=== PATIENT | female | born 1985 | race Caucasian/White ===

== ENCOUNTER 2018-07-27 17:44 | Observation (INO) | payer OTHER ==
[~2018-07-27] VITALS: Ht 168 cm; Wt 74.8 kg
[2018-07-27 18:54] VITALS: BP 117/77
[2018-07-27] MEDS ORDERED: PREN1TAB80 PO (18:54)
[2018-07-27] MEDS: RINGERS SOLUTION,LACTATED 1,000 ML IV SCH (20:14)
== END 2018-07-27 23:40 | disposition home or self-care (01) ==
LOC: OBSVTOIN 17:44 → 4S 17:44 → INTOOBSV 17:44
PROVIDERS: ADMIT Specialist; ATTEND Specialist
DX: O62.9 Abnormality of forces of labor, unspecified (principal); O48.0 Post-term pregnancy; Z3A.40 40 weeks gestation of pregnancy
CPT/HCPCS: 59025; 76805; 96360

== ENCOUNTER 2018-07-29 14:45 | Observation (INO) | payer OTHER ==
[~2018-07-29 14:45] MED LIST: PREN1TAB80 PO
[2018-07-29 16:07] VITALS: BP 111/68
== END 2018-07-29 16:45 | disposition home or self-care (01) ==
LOC: 4S 14:45
PROVIDERS: ADMIT Obstetrics & Gynecology; ATTEND Obstetrics & Gynecology
DX: O26.893 Other specified pregnancy related conditions, third trimester (principal); R20.0 Anesthesia of skin; O48.0 Post-term pregnancy; Z3A.40 40 weeks gestation of pregnancy
CPT/HCPCS: 59025; G0378

== ENCOUNTER 2018-07-29 17:06 | Emergency (ER) | payer SELFPAY ==
[~2018-07-29] VITALS: Ht 175.3 cm; Wt 74.0 kg
[2018-07-29] MEDS ORDERED: MINERAL OIL/PETROLATUM,WHITE PF 3.5 GM OPHTHALMIC OINTMENT OS ONE (17:30)
[2018-07-29 18:08] VITALS: BP 111/64
== END 2018-07-29 18:31 | disposition home or self-care (01) ==
LOC: EMS 17:06
DX: O26.893 Other specified pregnancy related conditions, third trimester (principal); G51.0 Bell's palsy; Z3A.40 40 weeks gestation of pregnancy
CPT/HCPCS: 99283

== ENCOUNTER 2018-08-01 09:52 | Inpatient (IN) | payer OTHER ==
[~2018-08-01] VITALS: Ht 168 cm; Wt 74.4 kg
[2018-08-01 10:07] VITALS: BP 109/67
[2018-08-01] MEDS ORDERED: RINGERS SOLUTION,LACTATED 1,000 ML IV ONE (11:28)
[2018-08-01] MEDS ORDERED: RINGERS SOLUTION,LACTATED 1,000 ML IV PRN (11:29)
[2018-08-01] MEDS ORDERED: RINGERS SOLUTION,LACTATED 1,000 ML IV SCH (11:29)
[2018-08-01] MEDS ORDERED: OXYTOCIN 30 UNITS/LACT RINGERS 500 ML IV ONE (11:29)
[2018-08-01] MEDS ORDERED: METHYLERGONOVINE MALEATE 0.2 MG/ML VIAL IM PRN (11:30)
[2018-08-01] MEDS ORDERED: METOCLOPRAMIDE HCL 5 MG/ML 2 ML VIAL IVP PRN (11:30)
[2018-08-01] MEDS ORDERED: CITRIC ACID/SODIUM CITRATE 30 ML SOLUTION UDCUP PO PRN (11:30)
[2018-08-01] MEDS ORDERED: FentaNYL CITRATE-PF 100 MCG/2 ML VIAL IVP PRN (11:30)
[2018-08-01] MEDS ORDERED: LIDOCAINE/PF 1% 30 ML VIAL INJ PRN (11:30)
[2018-08-01] MEDS: OXYGEN THERAPY IH SCH ×2 (11:30→20:00)
[2018-08-01] MEDS ORDERED: ROPIVACAINE HCL/PF 0.2% 100 ML ED ONE (12:04)
[2018-08-01] MEDS ORDERED: LIDOCAINE/PF 2% 5 ML VIAL ONE (12:04)
[2018-08-01 12:15] LABS: BASOPHILS % (AUTO) 0.4 % (0.0-2.0); EOSINOPHILS % (AUTO) 0 % (1.0-6.0); HEMATOCRIT 39.2 % (36-46); HEMOGLOBIN 13.6 g/dL (12.0-16.0); LYMPHOCYTES # (AUTO) 1.2 K/uL (1.0-4.8); LYMPHOCYTES % (AUTO) 10.8 % (22.0-44.0); MEAN CORPUSCULAR HEMOGLOBIN 32.2 pg (26.0-34.0); MEAN CORPUSCULAR HGB CONC 34.6 G/dL (31.0-37.0); MEAN CORPUSCULAR VOLUME 93 fL (80-100); MONOCYTES # (AUTO) 0.4 K/uL (0.1-1.0); MONOCYTES % (AUTO) 3.4 % (2.0-9.0); NEUTROPHILS # (AUTO) 9.3 K/uL (1.8-7.7); NEUTROPHILS % (AUTO) 85.4 % (40.0-70.0); PLATELET COUNT (AUTO)-OB 163 K/uL (150-450); RED BLOOD CELL COUNT(AUTO) 4.21 MIL/uL (4.00-5.20); RED CELL DISTRIBUTION WIDTH 13.7 % (11.5-14.5)
[2018-08-01 17:13] LABS: RUBELLA SCREEN (IGG) IMMUNE (IMMUNE)
[2018-08-01] MEDS ORDERED: LANOLIN 7 GM OINTMENT TP PRN (19:15)
[2018-08-01] MEDS ORDERED: IBUPROFEN 600 MG TABLET PO PRN (19:15)
[2018-08-01] MEDS ORDERED: BENZOCAINE 20%/MENTHOL 56 GM SPRAY CANISTER TP PRN (19:15)
[2018-08-01] MEDS ORDERED: GLYCERIN/WITCH HAZEL LEAF 40 PADS JAR TP PRN (19:15)
[2018-08-01] MEDS ORDERED: ACETAMINOPHEN/CODEINE 300-30 MG TABLET PO PRN ×2 (19:15)
[2018-08-01] MEDS ORDERED: ACETAMINOPHEN 1000 MG/ISO-OSM 100 ML IV ONE (21:15)
[2018-08-01] MEDS: SENNA/DOCUSATE SODIUM 187-50 MG TABLET PO SCH (23:20)
[2018-08-02 05:25] LABS: BASOPHILS % (AUTO) 0.2 % (0.0-2.0); EOSINOPHILS % (AUTO) 0 % (1.0-6.0); HEMATOCRIT 32.7 % (36-46); HEMOGLOBIN 11.3 g/dL (12.0-16.0); LYMPHOCYTES # (AUTO) 1.5 K/uL (1.0-4.8); LYMPHOCYTES % (AUTO) 11.5 % (22.0-44.0); MEAN CORPUSCULAR HEMOGLOBIN 32.4 pg (26.0-34.0); MEAN CORPUSCULAR HGB CONC 34.5 G/dL (31.0-37.0); MEAN CORPUSCULAR VOLUME 94 fL (80-100); MONOCYTES # (AUTO) 0.9 K/uL (0.1-1.0); MONOCYTES % (AUTO) 7.3 % (2.0-9.0); NEUTROPHILS # (AUTO) 10.5 K/uL (1.8-7.7); PLATELET COUNT (AUTO)-OB 144 K/uL (150-450); RED BLOOD CELL COUNT(AUTO) 3.48 MIL/uL (4.00-5.20); RED CELL DISTRIBUTION WIDTH 13.6 % (11.5-14.5)
[2018-08-02] MEDS ORDERED: PHENYLEPHRINE/SHK LV/MIN OIL/PET 57 GM OINTMENT TP SCH (09:00)
[2018-08-02] MEDS: SENNA/DOCUSATE SODIUM 187-50 MG TABLET PO SCH (09:04)
== END 2018-08-02 19:27 | disposition home or self-care (01) | DRG 768 ==
LOC: 4S 09:52 → OBSVTOIN 09:52
PROVIDERS: ADMIT Obstetrics & Gynecology; ATTEND Obstetrics & Gynecology
PROC: 0W8NXZZ Division of Female Perineum, External Approach (ICD-10-PCS; principal; 2018-08-01)
PROC: 0DQP0ZZ Repair Rectum, Open Approach (ICD-10-PCS; 2018-08-01)
PROC: 10D07Z6 Extraction of Products of Conception, Vacuum, Via Natural or Artificial Opening (ICD-10-PCS; 2018-08-01)
PROC: 3E0R3BZ Introduction of Anesthetic Agent into Spinal Canal, Percutaneous Approach (ICD-10-PCS; 2018-08-01)
PROC: 00HU33Z Insertion of Infusion Device into Spinal Canal, Percutaneous Approach (ICD-10-PCS; 2018-08-01)
DX: O42.92 Full-term premature rupture of membranes, unspecified as to length of time between rupture and onset of labor (principal); Z37.0 Single live birth; O70.3 Fourth degree perineal laceration during delivery; Z3A.40 40 weeks gestation of pregnancy
CPT/HCPCS: 86592; 86762; 86850; 86900; 86901; 87340; J0131; J2590; J2795; J3010; J3490; J7120